=== PATIENT | female | born 1985 | race African-American/Black ===

== ENCOUNTER 2016-06-30 11:07 | Emergency (ER) | payer OTHER ==
[~2016-06-30] VITALS: Ht 157.5 cm; Wt 52.2 kg
[2016-06-30] MEDS ORDERED: PHENERGAN 25 MG25 M1 PO (11:19)
[2016-06-30] MEDS ORDERED: MACROBID 100 M100 M1 PO (11:19)
[2016-06-30] MEDS ORDERED: KEFLEX500 MG PO (11:23)
[2016-06-30 11:25] LABS: ABSOLUTE NEUTROPHILS 4.7 thou/uL (1.4-8.2); BASOPHILS 0.7 % (0.0-2.0); EOSINOPHILS 0.7 % (0.0-3.0); HEMATOCRIT 36.8 % (37.0-47.0); HEMOGLOBIN 12.8 gm/dL (12.0-15.0); LYMPHOCYTES 28.8 % (24.0-44.0); MCH 31.7 pg (26.0-34.0); MCHC 34.9 g/dL (28.0-37.0); MCV 90.8 fL (80.0-100.0); MONOCYTES 7.2 % (1.0-8.0); PLATELET COUNT 237 thou/uL (150-400); POLYS 62.6 % (36.0-66.0); RBC 4.06 mil/uL (4.20-5.00); RDW 12.3 % (10.5-14.5); WBC 7.6 thou/uL (4.0-11.0)
[2016-06-30 11:26] LABS: MANUAL DIFF NO
[2016-06-30 11:33] LABS: CALCIUM 8.8 mg/dL (8.5-10.1); CREATININE 0.4 mg/dL (0.6-1.0); POTASSIUM 3.7 mmol/L (3.5-5.1)
[2016-06-30 11:43] LABS: URINE BILIRUBIN NEGATIVE (Negative); URINE BLOOD NEGATIVE (Negative); URINE COLOR YELLOW; URINE GLUCOSE-RANDOM* NEGATIVE (Negative); URINE KETONES NEGATIVE (Negative); URINE NITRITE NEGATIVE (Negative); URINE PROTEIN (DIPSTICK) NEGATIVE (Negative); URINE SPECIFIC GRAVITY 1.015 (1.003-1.035); URINE UROBILINOGEN 0.2 E.U./dl (0.2-1.0)
[2016-06-30 12:24] VITALS: BP 101/86
== END 2016-06-30 12:25 | disposition home or self-care (01) ==
LOC: ER 11:07
PROVIDERS: Emergency Medicine
DX: O21.9 Vomiting of pregnancy, unspecified (principal); O23.41 Unspecified infection of urinary tract in pregnancy, first trimester; Z3A.01 Less than 8 weeks gestation of pregnancy; Z87.891 Personal history of nicotine dependence